=== PATIENT | male | born 1995 | race Caucasian/White ===

== ENCOUNTER 2019-07-03 21:46 | Emergency (ER) | payer BC ==
[~2019-07-03] VITALS: Ht 177.8 cm; Wt 59.0 kg
[2019-07-03 21:58] VITALS: BP_SYST 140
--- NOTE | 2019-07-03 22:18 | NUR ---
Patient to ER bed 03 to gown for evaluation. Side rails up.
--- NOTE | 2019-07-03 22:20 | NUR ---
Pt complains of left lower quadrant pain of the abdomen. Pt states it has been off and on for the past 5 days and today was worse. Pt vomited more than 5 times. Pt tried taking peptobismol with no relief. Pt states he felt cold and hot at the same time and had some diarrhea. Last time he ate was noon today which made his stomach hurt. No other injuries/complaints per patient or noted.
--- NOTE | 2019-07-03 22:25 | NUR ---
ER Dr. Sommer at bedside examining patient.
[2019-07-03] MEDS ORDERED: NACL 0.9% 1,000 ML IV ONE (22:30)
[2019-07-03] MEDS ORDERED: KETOROLAC TROMETHAMINE 30 MG VIAL IVP ONE (22:30)
[2019-07-03] MEDS ORDERED: ONDANSETRON HCL 4 MG/2 ML VIAL IVP ONE ×2 (22:30→23:45)
--- NOTE | 2019-07-03 22:34 | NUR ---
patient went radiology in stable condition.
[2019-07-03 22:41] LABS: BASOPHILS % (AUTO) 0.3 % (0.0-2.0); HEMATOCRIT 46.7 % (36-54); HEMOGLOBIN 15.9 g/dL (14.0-18.0); LYMPHOCYTES # (AUTO) 0.6 K/uL (1.0-5.5); LYMPHOCYTES % (AUTO) 5.1 % (20.5-51.5); MEAN CORPUSCULAR HEMOGLOBIN 31 pg (27-31); MEAN CORPUSCULAR HGB CONC 34 % (32-36); MEAN CORPUSCULAR VOLUME 91 fL (79.0-98.0); MONOCYTES # (AUTO) 0.4 K/uL (0.0-1.0); MONOCYTES % (AUTO) 3.6 % (1.7-9.3); NEUTROPHILS # (AUTO) 10.5 K/uL (1.8-7.7); PLATELET COUNT (AUTO) 269 K/uL (130-430); RED BLOOD CELL COUNT(AUTO) 5.13 MIL/uL (4.2-6.2); RED CELL DISTRIBUTION WIDTH 12.6 % (9.0-15.0); WHITE BLOOD COUNT (AUTO) 11.5 K/uL (4.8-10.8)
--- NOTE | 2019-07-03 22:42 | NUR ---
patient returned from radiology in stable condition.
[2019-07-03 23:00] LABS: CALCIUM 9.6 mg/dL (8.4-11.0); CREATININE 0.91 mg/dL (0.55-1.30); POTASSIUM 3.7 mmol/L (3.5-5.1)
[2019-07-03 23:05] LABS: ALBUMIN 4.6 g/dL (3.4-4.8); TOTAL BILIRUBIN 0.8 mg/dL (0.0-1.0)
[2019-07-04] MEDS ORDERED: MORPHINE 2 MG/ML INJ. SYRINGE IVP ONE
[2019-07-04] MEDS ORDERED: LORazepam 2 MG/ML VIAL (FOR ER USE) IVP ONE (00:45)
[2019-07-04] MEDS ORDERED: METOCLOPRAMIDE HCL 10 MG/2 ML VIAL IVP ONE (00:45)
[2019-07-04 01:30] VITALS: BP_SYST 132
--- NOTE | 2019-07-04 01:30 | NUR ---
Patient given written and verbal discharge instructions and verbalizes understanding. ER MD discussed with patient the results and treatment provided. Patient in stable condition. ID arm band removed. IV catheter removed intact and dressing applied, no active bleeding. Rx of Tramadol, Reglan, Zofran given. Patient educated on pain management and to follow up with PMD. Pain Scale 0. Opportunity for questions provided and answered. Medication side effect fact sheet provided.
== END 2019-07-04 01:30 | disposition home or self-care (01) ==
LOC: SED 21:46
DX: K52.9 Noninfective gastroenteritis and colitis, unspecified (principal); F12.10 Cannabis abuse, uncomplicated
CPT/HCPCS: 36415; 74018; 74176; 80053; 83690; 85025; 96361; 96374; 96375 ×2; 96376; 99284; J1885; J2060; J2270; J2405 ×2; J2765; J7030